=== PATIENT | male | born 1945 | race Caucasian/White ===

== ENCOUNTER 2016-04-13 06:25 | Day surgery (SDC) | payer MEDICARE ==
[~2016-04-13 06:25] MED LIST: CHONDR SULF 4%/HYALURONATE 3% 0.5 ML SYRINGE IO ONE; D5 1/2NS 500 ML IV SCH; EPINEPHRINE 0.5 MG in BALANCED SALT IRRIG SOLN NO.2 500 ML IO ONE; LIDOCAINE 4% (PRES FREE) 1 ML, BALANCED SALT IRRIG SOLN COMB2 3 ML, EPINEPHRINE 1.25 MG IO ONE; NEO/POLYMYX B SULF/DEXAMETH OP OINT 14 APPLIC/3.5 G TUBE OD ONE; PHENYLEPHRINE HCL 10% 100 GTTS/5 ML BOT SOLN.DROP OD PRN; PROPARACAINE HCL 0.5% 300 GTTS/BOT SOLN.DROP OD ONE
[2016-04-13] MEDS ORDERED: IV START KIT ONE (06:46)
[2016-04-13] MEDS ORDERED: SODIUM CHLORIDE 0.9% 500 ML ONE (06:46)
[2016-04-13] MEDS: PHENYLEPHRINE 2.5% OPHTH 40 GTTS/2 ML BOT SOLN.DROP OD SCH ×2 (07:19→07:26)
[2016-04-13] MEDS: CYCLOPENTOLATE HCL 1% 40 GTTS/2 ML BOT SOLN.DROP OD SCH ×2 (07:19→07:27)
[2016-04-13] MEDS: FLURBIPROFEN SODIUM 0.03% 50 GTTS/2.5 ML BOT SOLN.DROP OD SCH ×2 (07:19→07:27)
[2016-04-13] MEDS ORDERED: MIDAZOLAM HCL 1 MG/ML 2ML VIAL ONE (08:33)
--- NOTE | 2016-04-14 07:43 | OP ---
Mansoor Davis [id number] DATE OF PROCEDURE: April 13, 2016 PREOPERATIVE DIAGNOSIS: Cataract OD. POSTOPERATIVE DIAGNOSIS: Pseudophakia OD. PROCEDURE: PHACOEMULSIFICATION AND POSTERIOR CHAMBER INTRAOCULAR LENS OD. ANESTHESIA: Monitored anesthesia care (MAC) with topical. SURGEON: Loco Lindsay M.D. COMPLICATIONS: None. DESCRIPTION OF PROCEDURE: After informed consent was obtained the patient was brought back to the operating room and laid in the supine position. Cardiac monitors and intravenous access were obtained by nursing and the patient underwent intravenous sedation without complication. Once adequate sedation was in place the patient was prepped and draped in the usual sterile fashion and a lid speculum was placed in the right eye. Attention was directed to the limbus at twelve o'clock where a side port was created using a 15 degree blade. Upon entering the anterior chamber non-preserved lidocaine was placed anterior chamber followed by reinflating the anterior chamber with Viscoelastic. The clear corneal incision was then created at nine o'clock on the limbus using a groove blade followed by a 2.4 mm keratome blade. Upon entering the anterior chamber a curvilinear capsulorrhexis was initiated and completed with Utrata forceps. The cataract was hydrodissect using Balanced salt solution (BSS) and following that it was removed with the phacoemulsification unit in a phaco-chop technique. The remaining cortical remnants were removed with the irrigation and aspiration unit. Viscoelastic was used to reinflate the anterior chamber and capsular bag and the intraocular lens SN60WF, 20.0 diopter lens was removed from packaging and found to be without defect. This was placed into the injector was injected into the capsular bag without difficulty. The posterior haptic was rotated into position using a Kuglen hook. The lens was noted to be well centered in the bag. The remaining viscoelastic was then removed with the irrigation and aspiration unit. Balanced salt solution (BSS) was used to reinflate the anterior chamber and the wounds were inspected and found to be watertight. Maxitrol ointment was placed in the eye. The patient had the lid speculum removed and shield placed and left the operating room in good condition and there were no complications. JOB: [id number]
== END 2016-04-13 09:30 | disposition home or self-care (01) ==
LOC: SDC 06:25
PROVIDERS: ATTEND Ophthalmology
PROC: 08RJ3JZ Replacement of Right Lens with Synthetic Substitute, Percutaneous Approach (ICD-10-PCS; principal; 2016-04-13)
DX: H26.9 Unspecified cataract (principal); I10 Essential (primary) hypertension; Z98.42 Cataract extraction status, left eye; Z96.1 Presence of intraocular lens
CPT/HCPCS: 66984; J2250; J7040; J0171 ×2